=== PATIENT | female | born 1960 | race Caucasian/White ===

== ENCOUNTER → 2017-08-01 | Outpatient (CLI) | payer OTHER ==
[~2017-08-01] MED LIST: ASPIR 8181 MG PO; DIPHENHIST50 MG PO; EPIPEN 2-P0.3 MG/0.3 IM; IBUPROFEN 200200 M1 PO; LEVAQUIN 500 M500 M2 PO; NOHOMEMEDICATIONS; OMEPRAZOLE 20 M20 M1 PO; PREDNISONE 10 M10 MG PO; SIMVASTATIN20 MG PO
== END ==
LOC: M.ULTRA 07:18
DX: K80.20 Calculus of gallbladder without cholecystitis without obstruction (principal); R14.0 Abdominal distension (gaseous)

== ENCOUNTER → 2020-06-28 | Outpatient (CLI) | payer OTHER | LOC: M.CT 09:09 | PROVIDERS: ATTEND Family Medicine | DX: Z13.6 Encounter for screening for cardiovascular disorders (principal) ==

== ENCOUNTER → 2020-06-28 | Outpatient (CLI) | payer OTHER ==
--- NOTE | 2020-06-28 14:00 | 2DMMODE ---
[place] [address] 2 D/M-MODE ECHOCARDIOGRAM Name: MAXX GRAYSON Gillian Room: [facility]#: [id number] Admission: 06/28/20 Attend Phys: Michael Telles, Discharge: Date of : 56 Date of Service: 06/28/20 1400 Report #: [id number] THIS REPORT FOR: cc: Michael Telles John E. DO Holkins, John M. MD [facility] ~ APPROVED REPORT Study performed: 06/28/2020 09:15:21 EXAM: Comprehensive 2D, Doppler, and color-flow Echocardiogram Patient Location: Out-Patient BSA: 1.84 HR: 60 bpm BP: 127/70 mmHg Other Information Study Quality: Good Indications Chest Pain 2D Dimensions IVSd: 10.69 (7-11mm) LVOT Diam: 19.83 (18-24mm) LVDd: 44.48 mm PWd: 11.18 (7-11mm) Ascending Ao: 32.93 (22-36mm) LVDs: 29.71 (25-40mm) Aortic Root: 27.94 mm Volumes Left Atrial Volume (Systole) LA ESV Index: 21.90 mL/m2 Aortic Valve AoV Peak Juan.: 1.23 m/s AO Peak Gr.: 6.04 mmHg LVOT Max P.54 mmHg AO Mean Gr.: 3.51 mmHg LVOT Mean P.70 mmHg LVOT Max V: 1.18 m/s AO V2 VTI: 30.08 cm LVOT Mean V: 0.76 m/s JESSICA (VTI): 2.78 cm2 LVOT V1 VTI: 27.06 cm Mitral Valve E/A Ratio: 0.78 [place] [address] 2 D/M-MODE ECHOCARDIOGRAM Name: MAXX GRAYSON Room: [facility]#: [id number] Admission: 06/28/20 Attend Phys: Michael Telles, Discharge: Date of : 56 Date of Service: 06/28/20 1400 Report #: [id number] MV Decel. Time: 211.34 ms MV E Max Juan.: 0.56 m/s MV PHT: 61.29 ms MVA (PHT): 3.59 cm2 TDI E/Lateral E': 8.00 E/Medial E': 9.33 Medial E' Juan.: 0.06 m/s Lateral E' Juan.: 0.07 m/s Pulmonary Valve PV Peak Juan.: 0.86 m/s PV Peak Gr.: 2.93 mmHg Tricuspid Valve RAP Estimate: 5.00 mmHg TR Peak Gr.: 14.54 mmHg RVSP: 19.54 mmHg PA Pressure: 19.54 mmHg Left Ventricle The left ventricle is normal size. There is normal LV segmental wall motion. There is normal left ventricular wall thickness. Left ventricular systolic function is normal. The left ventricular ejection fraction is within the normal range. LVEF is 55-60%. Grade I - abnormal relaxation pattern. Right Ventricle The right ventricle is normal size. The right ventricular systolic function is normal. Atria The left atrium size is normal. The right atrium size is normal. Aortic Valve The aortic valve is normal in structure. No aortic regurgitation is present. There is no aortic valvular stenosis. Mitral Valve The mitral valve is normal in structure. There is no mitral valve regurgitation noted. No evidence of mitral valve stenosis. Tricuspid Valve The tricuspid valve is normal in structure. Trace tricuspid regurgitation[place] [address] 2 D/M-MODE ECHOCARDIOGRAM Name: MAXX GRAYSON Room: [facility]#: [id number] Admission: 06/28/20 Attend Phys: Michael Telles, Discharge: Date of : 56 Date of Service: 06/28/20 1400 Report #: [id number] The pulmonary valve is normal in structure. There is no pulmonic valvular regurgitation. Great Vessels The aortic root is normal in size. IVC is normal in size and collapses >50% with inspiration. Pericardium There is no pericardial effusion. <Conclusion> The left ventricle is normal size. There is normal left ventricular wall thickness. Left ventricular systolic function is normal. The left ventricular ejection fraction is within the normal range. LVEF is 55-60%. Grade I - abnormal relaxation pattern. The right ventricle is normal size. The left atrium size is normal. The aortic valve is normal in structure. The mitral valve is normal in structure. The tricuspid valve is normal in structure. IVC is normal in size and collapses >50% with inspiration. There is no pericardial effusion. There is normal LV segmental wall motion. <ELECTRONICALLY SIGNED> By: Michael Key MD, FACC 06/28/20 1400 1400 99 Michael Key MD, FACC /INF
== END ==
LOC: M.CRD 09:00
PROVIDERS: ATTEND Family Medicine
DX: R07.9 Chest pain, unspecified (principal)